=== PATIENT | female | born 1955 | race Two or more races ===

== ENCOUNTER 2025-08-11 13:01 | Outpatient (AMB) | payer OTHER, SELFPAY ==
--- OUTSIDE RECORDS SUMMARY | 2025-08-11 13:04 | XMS_ITS | Clinical Summary ---
Author Organization [facility] Address [address] [place] [address] Phone Care Team Providers Care Assistant Director Of Financial Aid Name Role Phone Brandon Arzola MD Primary Care Provider [phone] Allergies Active Allergy Reactions Criticality Noted Date Comments Amoxicillin Respiratory Issues Medium 06/23/2017 Aspirin GI intolerance Low 06/23/2017 Influenza Virus Vaccines Other High 01/26/2020 In [place] - after given vaccine, had generalized weakness for a month. Doctor told her never to get this again. (however was not told specifically Guillain-[place]ubu[place]) Medications hydrOXYzine HCL (ATARAX) 10 mg tablet Take 1 tablet (10 mg total) by mouth 3 (three) times a day. 30 tablet 1 5 Active SUMAtriptan (IMITREX) 50 mg tablet Take 1 tablet (50 mg total) by mouth 1 (one) time each day if needed for migraine (may repeat dose once after 2 hours, if needed) for up to 40 doses. May repeat dose once in 2 hours if no relief. Do not exceed 2 doses in 24 hours. 20 tablet 1 5 Active betamethasone, augmented, (DIPROLENE-AF) 0.05 % cream Apply topically 2 (two) times a day. Apply topically 2 (two) times a day 30 g 3 5 Active escitalopram (LEXAPRO) 20 mg tablet Take 1 tablet (20 mg total) by mouth 1 (one) time each day. 90 each 5 Active fluticasone propionate (FLONASE) 50 mcg/actuation nasal spray Administer 1 spray into each nostril 1 (one) time each day. Shake gently. Before first use, prime pump. After use, clean tip and replace cap. 16 g 5 Active lisinopriL (PRINIVIL,ZESTR IL) 10 mg tablet Take 1 tablet (10 mg total) by mouth 1 (one) time each day. 90 each 5 Active mirtazapine (REMERON) 7.5 mg tablet Take 1 tablet (7.5 mg total) by mouth at bedtime. at bedtime. 90 each 5 Active omeprazole (PriLOSEC) [address] capsule Take 1 capsule (20 mg total) by mouth 1 (one) time each day. 90 capsule 5 Active rosuvastatin (CRESTOR) 10 mg tablet Take 1 tablet (10 mg total) by mouth 1 (one) time each day. 90 each 5 Active donepeziL (ARICEPT) 5 mg tablet Take 1 tablet (5 mg total) by mouth at bedtime. Active oxyCODONE (ROXICODONE) 5 mg immediate release tablet Take 1 tablet (5 mg total) by mouth every 6 (six) hours if needed (take 1 tablet (5mg) for moderate pain (4-6) or take 2 tablets (10mg) for severe pain (7-10)). Max Daily Amount: 20 mg 28 tablet 5 Active propranoloL (INDERAL) 10 mg tablet Take 1 tablet (10 mg total) by mouth 2 (two) times a day. 180 each 5 10/15/20 25 Active albuterol 2.5 mg /3 mL (0.083 %) nebulizer solutionIndicat ions:Moderate persistent asthma, unspecified whether complicated Take 3 mL (2.5 mg total) by nebulization 4 (four) times a day if needed for wheezing or shortness of breath. 90 each 5 05/03/20 26 Active albuterol HFA (Ventolin HFA) 90 mcg/actuation inhalerIndicati ons:Moderate persistent asthma, unspecified whether complicated Inhale 2 puffs by mouth every 4 (four) hours if needed for wheezing or shortness of breath. 8 g 5 05/03/20 26 Active gabapentin (NEURONTIN) 300 mg capsuleIndicati ons:Malignant neoplasm of lung, unspecified laterality, unspecified part of lung (CMS/HCC V24, CMS/HCC V28) Take 1 capsule (300 mg total) by mouth 3 (three) times a day if needed (pain). 90 each 5 10/30/20 25 Active cholecalciferol (VITAMIN D-3) 50 mcg (2,000 unit) tabletIndicatio ns:Vitamin D deficiency Take 1 tablet (2,000 Units total) by mouth 1 (one) time each day. 90 tablet 5 05/16/20 26 Active magnesium oxide 400 mg magnesium capsuleIndicati ons:Hypomagnese kajal Take 1 capsule by mouth 1 (one) time each day. 30 capsule 3 5 Active blood sugar diagnostic (FreeStyle Lite Strips) test strip USE TO CHECK SUGARS ONCE DAILY 100 strip 5 5 Active FreeStyle Lancets 28 gauge lancets USE TO CHECK SUGARS ONCE DAILY 100 each 5 5 Active fenofibrate (TRICOR) 145 mg tablet Take 1 tablet (145 mg total) by mouth 1 (one) time each day. 30 each 5 5 01/16/20 26 Active Active Problems Problem Noted Date Diagnosed Date History of lung cancer 04/09/2025 Assessment & Plan (04/09/2025 3:50 PM EDT): Ms. Carly Berry is a 69 y.o. 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 After checking Mass[employer] and seeing no red flags I did prescribe her oxycodone 5 mg tablets to be used 1 tablet 3 times daily total supply #30. She was informed that we did discuss her at our weekly multidisciplinary tumor board meeting with the decision made that she would not require any visits with medical oncology and instead would continue with chest CT surveillance every 6 months for the first year. After 1 year of 6-month surveillance her chest CT surveillance intervals will be increased to yearly for a total of 10 years. Her next chest CT surveillance will be due in 6 months which will be September 2025 and have a visit at the thoracic surgical department thereafter to discuss results. Lung cancer ([facility] V24, [facility] V28) Pulmonary nodule 02/17/2025 Asthma 11/01/2024 HTN (hypertension) 11/01/2024 Hyperlipidemia LDL goal <130 11/01/2024 Migraine headache 11/01/2024 Seasonal allergies 11/01/2024 Type 2 diabetes mellitus wit h hyperglycemia, without long-term current use of insulin ([facility] V24, [facility] V28) 08/16/2024 Smoker 08/18/2019 Obstructive sleep apnea 01/26/2019 Overview (11/01/2024): SMS Home Polysomnogram: Date 01/23/2019; HEMALATHA 11, Unclassified apneas 3; Obstructive apneas 83; Central apneas 8; Mixed apneas 1; hypopneas 45; average oxygen saturation 94% (lowest 84% without saturations <88% for 5% or more of study) - Obstructive Sleep Apnea - mild; mostly obstructive apneas and hypopneas; without sleep related hypoventilation by 2018 home polysomnogram. Vitamin D deficiency 11/04/2018 Encounters Date Type Department Care Team Description 07/20/2025 3:45 PM EDT Office Visit Internal Medicine [address] [place] [address] Brandon Arzola MD Right-sided chest wall pain (Primary Dx); Hyperlipidemia LDL goal <130 06/27/2025 1:30 PM EDT Office Visit [facility] Hematology Oncology [address] [place] [address] Lizz Rodgers PA Leukocytosis, unspecified type (Primary Dx); History of lung cancer; TUCKER (obstructive sleep apnea); Class 1 obesity with serious comorbidity and body mass index (BMI) of 30.0 to 30.9 in adult, unspecified obesity type; Tobacco use disorder 05/19/2025 Telephone Internal Medicine - [facility] [address] [facility] [address] [place] [phone] Debra Dawkins MA 05/17/2025 11:00 AM EDT Ancillary Procedure Pulmonology - [facility] [address] [facility] [place] [phone] Pulmonary nodule from Last 3 Months Surgical History Surgery Date Site/Laterality Comments OOPHORECTOMY Left PROCEDURE: HISTORICAL OOPHORECTOMY COLONOSCOPY 07/20/2017 PROCEDURE: HISTORICAL COLONOSCOPY; COMMENT: tics; repeat in 10 yrs HYSTERECTOMY 2000 PROCEDURE: HISTORICAL HYSTERECTOMY TONSILLECTOMY LUNG LOBECTOMY 03/22/2025 Right RML Medical History Medical History Date Comments HTN (hypertension) DX:HTN (hyper tension) Hyperlipidemia LDL goal <130 DX: Hyperlipidemia LDL goal <130 Asthma DX:Asthma Migraine headache DX:Migraine he adache Seasonal allergies DX:Seasonal a llergies Smoker 08/18/2019 DX:Smoker Anxiety GERD (gastroesophageal reflux disease) Colon polyp Sleep apnea Arthritis Lung cancer ([facility] V24, [facility] V28) RML Family History Medical History Relation Name Comments No Known Problems Aunt 1 Alzheimer's disease Aunt 2 Hyperlipidemia Brother 1 Other: PTSD Brother 1 Other: PTSD Brother 2 No Known Problems Daughter Age 34 (06/23/2017) CABG Father Heart attack Father Stroke Father No Known Problems Maternal Grandfather Alzheimer's disease Maternal Grandmother Alzheimer's disease Mother 93 y/o Lung cancer Mother Pancreatic cancer Mother metastatic Stroke Mother Breast cancer Other No Known Problems Paternal Grandfather No Known Problems Paternal Grandmother Depression Sister Hyperlipidemia Sister Migraines Sister Asthma Son 1 Migraines Son 1 Age 25 ( 7) Migraines Son 2 Age 45 ( 7) Alzheimer's disease Uncle 1 twin of mom Alzheimer's disease Uncle 2 Alzheimer's disease Uncle 3 Colon cancer Neg Hx Ovarian cancer Neg Hx Relation Name Status Comments Aunt 1 Aunt 2 Brother 1 Alive Brother 2 Alive Daughter Alive Father (Age 85) Maternal Grandfather Maternal Grandmother Mother (Age 93) Other cousin Paternal Grandfather Paternal Grandmother Sister Alive Son 1 Alive Son 2 Alive Uncle 1 Uncle 2 Uncle 3 Social History Tobacco Use Types Packs/Day Years Used Date Smoking Tobacco: Former Cigarettes 0.5 47.3 S tarted: 11/23/1977 Smokeless Tobacco: Never Alcohol Use Standard Drinks/Week Comments No 0 (1 standard drink = 0.6 oz pur e alcohol) Housing Instability Answer Date Recorde d Are you worried that in the next 2 months you may not have stable housing? No 01/18/2025 Food Access & Nutrition Answer Date Rec orded Do you have access to a vari ety of food including fruits and vegetables? Yes 01/18/2025 Access to Healthcare Answer Date Record ed Within the last 3 months, ho w many times did you visit the emergency department for your medical care? 0 01/18/2025 Health Literacy Answer Date Recorded How often do you need to hav e someone help you when you read instructions, pamphlets, or other written material from your doctor or pharmacy? Sometimes 01/18/2025 Caregiver: How often do you need to have someone help you when you read instructions, pamphlets, or other written material from your doctor or pharmacy? Not on file 01/18/2025 Financial Risk Answer Date Recorded How hard is it for you to pa y for the very basics like food, housing, medical care, and air conditioning / heating? Not very hard 01/18/2025 Transportation Answer Date Recorded Has the lack of transportati on kept you from meetings, work, or from getting things needed for daily living? No Has the lack of transportati on kept you from medical appointments or from getting medications? No 01/18/2025 Social Isolation Answer Date Recorded How often do you feel lonely or isolated from th ose around you? Rarely 01/18/2025 Food Risk Answer Date Recorded Within the past 12 months we worried whether our food would run out before we got money to buy more. Never true 01/18/2025 Within the past 12 months th e food we bought just didn't last and we didn't have money to get more. Never true 01/18/2025 Dependent Care Answer Date Recorded Do you need help finding or paying for care for your loved ones. For example, children's librarian or elderly care for an older adult? No 01/18/2025 Education Answer Date Recorded Do you think completing more education or training, like finishing a GED, going to college, or learning a trade, would be helpful for you? N/A 01/18/2025 Employment and Income Answer Date Recor ded During the last four weeks, have you been actively looking for work? No 01/18/2025 Living Situation Answer Date Recorded What is your living situation? 0 01/18/2025 Interpersonal Safety Answer Date Record ed Physical Abuse 03/22/2025 Verbal Abuse 03/22/2025 Comments No Sex and Gender Information Value Date Recorded Sex Assigned at Female 01/24/2025 11:58 AM EST Legal Sex Female 10:45 AM EST Gender Identity Female 01/24/2025 11:58 AM EST Sexual Orientation Straight 02/27/2025 11 :04 AM EDT Obstetrics History Last Filed Vital Signs Vital Sign Reading Time Taken Comments Blood Pressure 120/70 07/20/2025 3:28 PM EDT Pulse 61 07/20/2025 3:28 PM EDT Temperature 35.7 C (96.2 F) 07/20/2025 3:28 PM EDT Respiratory Rate 14 04/05/2025 3:01 PM EDT Oxygen Saturation 98% 07/20/2025 3:28 PM EDT Inhaled Oxygen Concentration - - Weight 81.6 kg (180 lb) 07/20/2025 3:28 PM EDT Height 162.6 cm (5' 4 ) 07/20/2025 3:28 PM EDT Body Mass Index 30.9 07/20/2025 3:28 PM EDT Plan of Treatment Upcoming Encounters Date Type Department Care Team (Late st Contact Info) Description 08/18/2025 2:10 PM EDT Appointment Radiology Department - [address] [phone] 09/28/2025 4:00 PM EST Office Visit Endocrinology - [address] [phone] Jaimie Rodriguez PA [address] [place] [address] 01/18/2026 3:30 PM EST Office Visit Internal Medicine - [facility] [address] [phone] Brandon Arzola MD [address] [facility] [address] [place] [address] Health Maintenance Due Date Last Done Comments Diabetes: Annual Foot Exam 1964 Diabetes: Annual Retina Eye Exam 1964 RSV Immunization Adult Patients (1 - Risk 60-74 years 1-dose series) 2014 Colorectal Cancer Screening: Colonoscopy 11/01/2022 Hepatitis C Screening 11/01/2022 Medicare Annual Wellness Visit 11/01/2022 Zoster Vaccines (2 of 2) 12/19/2022 10/24/2022, 09/23 COVID-19 Vaccine ( season) 2025 01/15/2024, 01/19/2021, 12/29/2020 Influenza Vaccine (#1) 2025 01/15/2024 Diabetes: Blood Sugar Control Test (HGBA1C) 09/01/2025 03/02/2025, 10/24/2024, 06/22/2024 Diabetes: Annual Urine Albumin-Creatinine Ratio (uACR) 10/24/2025 10/24/2024 Social Influencers of Health Screening 01/18/2026 01/18/2025 Falls Risk Assessment 03/23/2026 03/23/2025 Diabetes: Annual GFR (Glomerular Filtration Rate) 05/12/2026 05/12/2025, 03/23/2025, 03/22/2025, Additional history exists Hypertension/CHF/CAD Annual BMP Blood Test 05/12/2026 05/12/2025, 03/23/2025, 03/22/2025, Additional history exists Breast Cancer Screening 08/08/2026 08/08/20 24, 08/08/2024, 05/08/2023, Additional history exists DTaP,Tdap,and Td Vaccines (2 - Td or Tdap) 10/05/2027 10/05/2017 Cholesterol Screening (Lipid Panel) 05/12/2030 05/12/2025, 05/12/2025, 03/02/2025, Additional history exists Osteoporosis Screening (Bone Density Screening) 04/24/2031 04/24/2021 Pneumococcal Vaccine: 50+ Years Completed 03/05/2021, 01/26/2020, 12/20/2018 Depression Screening Completed 01/18/2025 Lung Cancer Screening (Low Dose CT) Discontinued 01/25/2025 HIB Vaccines Aged Out No longer eligi ble based on patient's age to complete this topic HPV Vaccines Aged Out No longer eligi ble based on patient's age to complete this topic Hepatitis A Vaccines Aged Out No long er eligible based on patient's age to complete this topic Hepatitis B Vaccines Aged Out No long er eligible based on patient's age to complete this topic IPV Vaccines Aged Out No longer eligi ble based on patient's age to complete this topic MMR Vaccines Aged Out No longer eligi ble based on patient's age to complete this topic Meningococcal ACWY Vaccine Aged Out N o longer eligible based on patient's age to complete this topic Meningococcal B Vaccine Aged Out No l onger eligible based on patient's age to complete this topic RSV Immunization Patients Under 20 months Aged Out No longer eligible based on patient's age to complete this topic Varicella Vaccines Aged Out No longer eligible based on patient's age to complete this topic Medical Devices Implanted Type Area Telegraph Printer Mechanic Device Identifier Shelf Expiration Date Model / Serial / Lot Sealant Fibrin Vistaseal 10ml - [id number] - [id number] Implanted:Qty : 1 on 03/22/2025 by Kristian Dolan MD at [facility] Hemostasis Right: Chest [employer] [id number] 08/29/2026 [id number] / [id number] / [id number] Sealant Progel Air Pleural 4ml - Sna - [id number] Implanted:Qty : 1 on 03/22/2025 by Kristian Dolan MD at [facility] [employer] Right: Chest CR [employer]ARD [employer] [id number] 08/23/2026 [id number] / [id number] / [id number] Procedures Procedure Name Priority Date/Time Associated Diagnosis Comments PULMONARY FUNCTION TESTING Routine 05/17/2025 11:50 AM EDT Pulmonary nodule LDL CHOLESTEROL, DIRECT Routine 05/12/2025 1:14 PM EDT Primary hypertension Type 2 diabetes mellitus without complication, without long-term current use of insulin ([facility] V24, [facility] V28) Hypercholesterolemia CBC WITH AUTO DIFFERENTIAL Routine 05/12/2025 1:14 PM EDT Primary hypertension Type 2 diabetes mellitus without complication, without long-term current use of insulin ([facility] V24, [facility] V28) Hypercholesterolemia CBC AND DIFFERENTIAL Routine 05/12/2025 1:14 PM EDT Primary hypertension Type 2 diabetes mellitus without complication, without long-term current use of insulin ([facility] V24, [facility] V28) Hypercholesterolemia COMPREHENSIVE METABOLIC PANEL Routine 05/12/2025 1:14 PM EDT Primary hypertension Type 2 diabetes mellitus without complication, without long-term current use of insulin ([facility] V24, [facility] V28) Hypercholesterolemia LIPID PANEL WITH REFLEX TO DIRECT LDL Routine 05/12/2025 1:14 PM EDT Primary hypertension Type 2 diabetes mellitus without complication, without long-term current use of insulin ([facility] V24, [facility] V28) Hypercholesterolemia THYROID STIMULATING HORMONE Routine 05/12/2025 1:14 PM EDT Primary hypertension Type 2 diabetes mellitus without complication, without long-term current use of insulin ([facility] V24, [facility] V28) Hypercholesterolemia MAGNESIUM Routine 05/12/2025 1:14 PM EDT Routine adult health maintenance VITAMIN B12 Routine 05/12/2025 1:14 PM EDT Vitamin B12 deficiency VITAMIN D 25 HYDROXY Routine 05/12/2025 1:14 PM EDT Vitamin D deficiency HEMOGLOBIN A1C Routine 03/02/2025 11:11 AM EDT Type 2 diabetes mellitus with hyperglycemia, without long-term current use of insulin ([facility] V24, [facility] V28) CT LUNG SCREENING Routine 01/25/2025 2:4 5 PM EST Cigarette smoker Encounter for screening for lung cancer MICROALBUMIN CREATININE URINE RATIO Routine 10/24/2024 10:04 AM EST Type II or unspecified type diabetes mellitus with renal manifestations, uncontrolled(250.42) ([facility] V24, [facility] V28) SCREENING MAMMOGRAPHY BI 2-VIEW BREAST INC CAD Routine 08/08/2024 1:34 PM EDT Encounter for other screening for malignant neoplasm of breast DXA BONE DENSITY STUDY 1+ SITS AXIAL SKEL Routine 04/24/2021 11:06 AM EDT Encounter for screening for osteoporosis from Last 3 Months or Most Recently Relevant to Health Maintenance Results * Pulmonary function testing: Carbon Monoxide Diffusing Capacity, Nitrogen Wash Out, Spirometry with Bronchodilator (05/17/2025 11:50 AM EDT) Impressions Julia Ying MD - 05/17/2025 11:50 AM EDT DATE OF SERVICE: 05/17/25 SPIROMETRY: FEV1 is 99 % predicted and an FVC is 90 % predicted. The FEV1/FVC ratio is 109% of normal, no response to bronchodilators noted. LUNG VOLUMES: Total lung capacity (TLC): 96% predicted. Residual volume (RV): 100% predicted RV/TLC ratio is 102% of normal DIFFUSION CAPACITY: DLCO 76% predicted. DlCO/VA 76% of predicted COMPARISONS: INTERPRETATION: This pulmonary function test shows normal spirometry with a slight diffusion impairment. Julia Ying MD us Kristian Dolan MD PFT ORDERABLES Final Result * (ABNORMAL) Lipid panel with reflex to direct LDL (05/12/2025 1:14 PM EDT) Cholesterol 394(H) 0 - 200 mg/dL LAB CHEMISTRY METHOD 05/12/2025 4:42 PM EDT [facility] Triglycerides 880(H) 0 - 150 mg/dL LAB CHEMISTRY METHOD 05/12/2025 4:42 PM EDT [facility] HDL 37(L) >=40 mg/dL LAB CHEMISTRY METHOD 05/12/2025 4:42 PM EDT [facility] LDL Calculated LAB CHEMISTRY METHOD 05/12/2025 4:42 PM EDT [facility] Comment: Unable to calculate when triglycerides >400 mg/dL. Triglyceride value is >= 500. Calculated LDL is not meaningful. Direct LDL has been added. VLDL Cholesterol Long LAB CHEMISTRY METHOD 05/12/2025 4:42 PM EDT [facility] Comment:Unable to calculate when triglycerides >400 mg/dL. Non HDL Chol. (LDL+VLDL) LAB CHEMISTRY METHOD 05/12/2025 4:42 PM EDT [facility] Comment:Unable to calculate when triglycerides >400 mg/dL. Chol/HDL Ratio 10.6(H) 0.0 - 4.4 LAB CHEMISTRY METHOD 05/12/2025 4:42 PM EDT [facility] Blood Venous blood specimen / Unknown Venipuncture / Unknown 05/12/2025 1:14 PM EDT 05/12/2025 1:14 PM EDT us Brandon Arzola MD LAB BLOOD ORDERABLES Final Resul t [facility] [address] [place] [address], [place] [phone] * (ABNORMAL) CBC auto differential (05/12/2025 1:14 PM EDT) WBC 10.2 4.8 - 10.8 K/mcL LAB HEMETOLOGY METHOD 05/12/2025 2:48 PM EDT [facility] RBC 4.60 3.80 - 4.80 M/mcL LAB HEMETOLOGY METHOD 05/12/2025 2:48 PM EDT [facility] Hemoglobin 13.0 11.5 - 16.0 g/dL LAB HEMETOLOGY METHOD 05/12/2025 2:48 PM EDT [facility] Hematocrit 40.9 35.0 - 47.0 % LAB HEMETOLOGY METHOD 05/12/2025 2:48 PM EDT [facility] MCV 89.7 79.0 - 98.0 FL LAB HEMETOLOGY METHOD 05/12/2025 2:48 PM EDT [facility] MCH 28.5 27.0 - 32.0 pcg LAB HEMETOLOGY METHOD 05/12/2025 2:48 PM EDT [facility] MCHC 31.8(L) 32.0 - 37.0 g/dL LAB HEMETOLOGY METHOD 05/12/2025 2:48 PM EDT [facility] RDW 13.7 11.0 - 15.0 % LAB HEMETOLOGY METHOD 05/12[facility]2025 2:[facility] Platelets 327 130 - 400 K/mcL LAB HEMETOLOGY METHOD 05/12/2025 2:48 PM [facility] MPV 10.5 7.0 - 11.0 FL LAB HEMETOLOGY METHOD 05/12/2025 2:48 PM [facility] NRBC 0.0 <1.0 % LAB HEMETOLOGY METHOD 05/12/2025 2:48 PM [facility] NRBC Absolute 0.00 <0.10 K/mcL LAB HEMETOLOGY METHOD 05/12/2025 2:48 PM [facility] Neutrophils Relative 43.8 % LAB HEMETOLOGY METHOD 05/12/2025 2:48 PM [facility] Lymphocytes Relative 40.5 % LAB HEMETOLOGY METHOD 05/12/2025 2:48 PM EDT [facility] Monocytes Relative 10.3 % LAB HEMETOLOGY METHOD 05/12/2025 2:48 PM [facility] Eosinophils Relative 3.5 % LAB HEMETOLOGY METHOD 05/12/2025 2:48 PM EDT [facility] Basophils Relative 1.2 % LAB HEMETOLOGY METHOD 05/12/2025 2:48 PM EDT [facility] Immature Granulocytes Relative 0.7 % LAB HEMETOLOGY METHOD 05/12/2025 2:48 PM EDT [facility] Neutrophils Absolute 4.47 1.50 - 7.00 K/mcL LAB HEMETOLOGY METHOD 05/12/2025 2:48 PM EDT [facility] Lymphocytes Absolute 4.14 1.00 - 5.00 K/mcL LAB HEMETOLOGY METHOD 05/12/2025 2:48 PM EDT [facility] Monocytes Absolute 1.05(H) 0.20 - 1.00 K/mcL LAB HEMETOLOGY METHOD 05/12/2025 2:48 PM EDT [facility] Eosinophils Absolute 0.36 0.00 - 0.50 K/mcL LAB HEMETOLOGY METHOD 05/12/2025 2:48 PM EDT [facility] Basophils Absolute 0.12 0.00 - 0.20 K/mcL LAB HEMETOLOGY METHOD 05/12/2025 2:48 PM EDT [facility] Immature Granulocytes Absolute 0.07(H) 0.00 - 0.03 K/mcL LAB HEMETOLOGY METHOD 05/12/2025 2:48 PM EDT [facility] Blood Venous blood specimen / Unknown Venipuncture / Unknown 05/12/2025 1:14 PM EDT 05/12/2025 1:14 PM EDT us Brandon Arzola MD LAB BLOOD ORDERABLES Final Resul t [facility] [address] [place] [address], * (ABNORMAL) Vitamin D 25 hydroxy (05/12/2025 1:14 PM EDT) Vit D, 25-Hydroxy 12.5(L) 30.0 - 80.0 ng/mL LAB CHEMISTRY METHOD 05/12/2025 4:48 PM EDT [facility] Blood Venous blood specimen / Unknown Venipuncture / Unknown 05/12/2025 1:14 PM EDT 05/12/2025 1:14 PM EDT Rolly Hilliard NP LAB BLOOD ORDERABLES Final Resul t Performing Organization Address [facility] de Phone Number [facility] [address] [place] [address], [place] [phone] * Thyroid stimulating hormone (05/12/2025 1:14 PM EDT) TSH 1.88 0.40 - 4.00 mcIU/mL LAB CHEMISTRY METHOD 05/12/2025 4:49 PM EDT [facility] Blood Venous blood specimen / Unknown Venipuncture / Unknown 05/12/2025 1:14 PM EDT 05/12/2025 1:14 PM EDT Brandon Arzola MD LAB BLOOD ORDERABLES Final Resul t Performing Organization Address [facility] de Phone Number [facility] [address] [place] [address], [place] [phone] * (ABNORMAL) Magnesium (05/12/2025 1:14 PM EDT) Magnesium 1.8(L) 1.9 - 2.6 mg/dL LAB CHEMISTRY METHOD 05/12/2025 4:18 PM EDT [facility] Blood Venous blood specimen / Unknown Venipuncture / Unknown 05/12/2025 1:14 PM EDT 05/12/2025 1:14 PM EDT Rolly Hilliard NP LAB BLOOD ORDERABLES Final Resul t Performing Organization Address City/[facility] de Phone Number [facility] [address] [place] [address], [place] [phone] * (ABNORMAL) LDL cholesterol, direct (05/12/2025 1:14 PM EDT) [facility] LDL Direct 154(H) <=100 mg/dL LAB CHEMISTRY METHOD 05/12/2025 4:56 PM EDT [facility] Blood Venous blood specimen / Unknown Venipuncture / Unknown 05/12/2025 1:14 PM EDT 05/12/2025 1:14 PM EDT Brandon Arzola MD LAB BLOOD ORDERABLES Final Resul t Performing Organization Address City/[facility]/ZIP Co de Phone Number [facility] [address] [place] [address], [place] [phone] * (ABNORMAL) Vitamin B12 (05/12/2025 1:14 PM EDT) [facility] Vitamin B-12 922(H) 250 - 900 pcg/mL LAB CHEMISTRY METHOD 05/12/2025 5:30 PM EDT [facility] Blood Venous blood specimen / Unknown Venipuncture / Unknown 05/12/2025 1:14 PM EDT 05/12/2025 1:14 PM EDT us Rolly Hilliard NP LAB BLOOD ORDERABLES Final Resul t [facility] [address] [place] [address], [place] [phone] * (ABNORMAL) Comprehensive metabolic panel (05/12/2025 1:14 PM EDT) [facility] Sodium 140 133 - 145 mmol/L LAB CHEMISTRY METHOD 05/12/2025 4:42 PM EDT [facility] Potassium 4.3 3.5 - 5.5 mmol/L LAB CHEMISTRY METHOD 05/12/2025 4:42 PM [facility] Chloride 102 96 - 110 mmol/L LAB CHEMISTRY METHOD 05/12/2025 4:42 PM [facility] CO2 30 21 - 32 mmol/L LAB CHEMISTRY METHOD 05/12/2025 4:42 PM [facility] Anion Gap 8 3 - 11 LAB CHEMISTRY METHOD 05/12/2025 4:42 PM [facility] Glucose 154(H) 70 - 100 mg/dL LAB CHEMISTRY METHOD 05/12/2025 4:42 PM [facility] BUN 11 5 - 25 mg/dL LAB CHEMISTRY METHOD 05/12/2025 4:42 PM [facility] Creatinine 0.84 0.50 - 1.10 mg/dL LAB CHEMISTRY METHOD 05/12/2025 4:42 PM [facility] eGFR 75 >=60 mL/min/1. 73m2 LAB CHEMISTRY METHOD 05/12/2025 4:42 PM [facility] Comment:Calculation based on the Chronic Kidney Disease Epidemiology Collaboration (CKD-EPI) equation refit without adjustment for race. BUN/Creatinine Ratio 13.1 LAB CHEMISTRY METHOD 05/12/2025 4:42 PM [facility] Calcium 9.3 8.5 - 10.5 mg/dL LAB CHEMISTRY METHOD 05/12/2025 4:42 PM [facility] AST (SGOT) 15 10 - 42 unit/L LAB CHEMISTRY METHOD 05/12/2025 4:42 PM [facility] ALT (SGPT) 21 10 - 60 unit/L LAB CHEMISTRY METHOD 05/12/2025 4:42 PM [facility] Alkaline Phosphatase 119 42 - 121 unit/L LAB CHEMISTRY METHOD 05/12/2025 4:42 PM [facility] Total Protein 7.1 6.0 - 8.0 g/dL LAB CHEMISTRY METHOD 05/12/2025 4:42 PM EDT [facility] Albumin 3.4 3.2 - 5.0 g/dL LAB CHEMISTRY METHOD 05/12/2025 4:42 PM EDT [facility] Total Bilirubin 0.3 0.0 - 1.4 mg/dL LAB CHEMISTRY METHOD 05/12/2025 4:42 PM EDT [facility] Blood Venous blood specimen / Unknown Venipuncture / Unknown 05/12/2025 1:14 PM EDT 05/12/2025 1:14 PM EDT Brandon Arzola MD LAB BLOOD ORDERABLES Final Resul t [facility] [address] [place] [address], [place] [phone] * (ABNORMAL) Hemoglobin A1c (03/02/2025 11:11 AM EDT) Hemoglobin A1C 7.1(H) <6.5 % LAB CHEMISTRY METHOD 03/02/2025 1:46 PM EDT [facility] Mean Bld Glu Estim. 157 mg/dL LAB CHEMISTRY METHOD 03/02/2025 1:46 PM EDT [facility] Blood Venous blood specimen / Unknown Venipuncture / Unknown 03/02/2025 11:11 AM EDT 03/02/2025 11:11 AM EDT Jaimie SAAB LAB BLOOD ORDERABLES Final Resul t [facility] [address] [place] [address], [place] [phone] * CT Lung Screening (01/25/2025 2:45 PM EST) Anatomical Region Laterality Modality Chest Computed Tomogra phy 01/27/2025 5:50 PM EST Impressions 01/27/2025 6:02 PM EST There is a low density circumscribed 1.2 cm nodule in the middle lobe. Recommend thorough search for any old x-rays or CT. The finding is nonspecific but possibility should include hamartoma. Recommend short interval follow-up CT in 3 months. There is motion artifact. LUNG RADS: Lung-RADS 4A: SUSPICIOUS S Modifier (Significant or Potentially Significant Findings): None present No suspicious nonpulmonary findings. RECOMMENDATIONS: [address]; PET/CT may be considered if there is a greater than or equal to 8 mm solid nodule or solid component -------- FINAL REPORT -------- Dictated By: Yousif Alonso Dictated Date: 01/27/2025 17:50 ET Assigned Physician: Yousif Alonso Reviewed and Electronically Signed By: Yousif Alonso Signed Date: 01/27/2025 18:02 ET Workstation ID: [id number] Transcribed By: Self Edit Transcribed Date: 01/27/2025 17:50 ET Narrative 01/27/2025 6:02 PM EST EXAMINATION: CT CHEST WITHOUT CONTRAST LUNG CANCER SCREENING, LOW DOSE CLINICAL INFORMATION: Lung cancer screening. Current smoker COMPARISON: None TECHNIQUE: Multidetector CT. Examination of the chest. Examination of the chest without IV contrast. Reformatting in the coronal and sagittal planes. Device: [employer] VCT DLP: 184 mGy-cm CTDI: 4.83 Dose optimization was performed including the use of low-dose iterative reconstruction technique with automatic exposure control based on patient size. Type of contrast: None Volume of IV contrast: None Volume of contrast discarded: 0 mL FINDINGS: There is motion artifact which limits detail. LUNG: No abnormality of the trachea or mainstem bronchi. LUNG NODULES: There is a circumscribed relatively low density oval solid nodule measuring 1.2 cm in the middle lobe (3/159). There are adjacent vessels. There is some irregular volume loss in the medial segment middle lobe distal to the mass. Difficult to determine if this is related to an airway. The mean Hounsfield units are 4. No definite macroscopic fat. No calcification. OTHER PULMONARY: There are reticular opacities adjacent to the right side of the trachea in the medial right upper lobe which is likely infectious or inflammatory. There is no honeycomb formation. There are a few linear areas of atelectasis or fibrosis. MEDIASTINUM: There are no enlarged mediastinal or hilar lymph nodes. No suspicious abnormalities of the esophagus CARDIAC: The heart is not enlarged. No pericardial fluid or thickening No coronary calcifications demonstrated. VASCULAR: There is no thoracic aortic aneurysm. The main pulmonary artery is normal caliber PLEURA: There is no pleural fluid or pneumothorax AXILLA/CHEST WALL: There are no enlarged axillary lymph nodes. No chest wall mass demonstrated VISUALIZED UPPER ABDOMEN: Motion artifact. Portions are excluded. No suspicious abnormality demonstrated. MUSCULOSKELETAL: No suspicious focal bony lesion demonstrated. Kristian Dolan MD IMG CT PROCEDURES Final Result * (ABNORMAL) Microalbumin creatinine urine ratio (10/24/2024 10:04 AM EST) Creatinine, Urine 328.0 mg/dL LAB CHEMISTRY METHOD 10/24/2024 4:19 PM EST [facility] Microalb, Ur 29.7(H) 0.0 - 29.0 mg/L LAB CHEMISTRY METHOD 10/24/2024 4:19 PM EST [facility] Microalb/Crea t Ratio 9 <30 mg/g creat LAB CHEMISTRY METHOD 10/24/2024 4:19 PM EST [facility] Urine Urine specimen obtained by clean catch procedure / Unknown Non-blood Collection / Unknown 10/24/2024 10:04 AM EST 10/24/2024 10:04 AM EST Jaimie SAAB LAB URINE ORDERABLES Final Resul t [facility] [address] [place] [address], * SCREENING MAMMOGRAPHY BI 2-VIEW BREAST INC CAD (08/08/2024 1:34 PM EDT) Anatomical Region Laterality Modality Radiographic Stephanie ging 05/08/2023 2:47 PM EDT Narrative 08/09/2024 9:40 AM EDT This is a summary report. The complete report is available in the patient's medical record. If you cannot access the medical record, please contact the sending organization for a detailed fax or copy. Full field digital screening tomosynthesis mammography, reviewed with CAD and compared to previous mammograms dating back to 10/29/2019 and most recent of 05/08/2023. The breast tissue is heterogeneously dense, limiting sensitivity. No suspicious mass, architectural distortion or suspicious calcifications are identified. IMPRESSION: : Dense breast tissue, limiting the sensitivity of mammography. No mammographic evidence of malignancy. BIRADS 1-Negative; N. Breast density: The breasts are heterogeneously dense, which may obscure small masses. 5 year breast cancer risk assessment 1.0 % Lifetime breast cancer risk assessment 2.8 % Breast cancer risk category Low (<15%) Location: [facility], [address] [place] [address], [address], [phone] Procedure Note Harini Iniguez MD - 09/07/2024 This is a summary report. The complete report is available in thepatient's medical record. If you cannot access the medical record, pleasecontact the sending organization for a detailed fax or copy. Full field digital screening tomosynthesis mammography, reviewed with CADand compared to previous mammograms dating back to 10/29/2019 and mostrecent of 05/08/2023. The breast tissue is heterogeneously dense, limitingsensitivity. No suspicious mass, architectural distortion or suspiciouscalcifications are identified. IMPRESSION: : Dense breast tissue, limiting the sensitivity of mammography. Nomammographic evidence of malignancy. BIRADS 1-Negative; N. Breast density: The breasts are heterogeneously dense, which may obscuresmall masses. 5 year breast cancer risk assessment 1.0 % Lifetime breast cancer risk assessment 2.8 % Breast cancer risk category Low (<15%) Location: [facility], [address] [place] [address], [address], [phone] Brandon Arzola MD IMG XR PROCEDURES Final Result * DXA BONE DENSITY STUDY 1+ SITS AXIAL SKEL (04/24/2021 11:06 AM EDT) Anatomical Region Laterality Modality Bone Densitometr y 12/03/2020 11:5 6 AM EST Narrative 04/24/2021 2:49 PM EDT BONE DENSITY Lumbar Spine T-score is -2.2 (SD relative to 20-29 y/o adult) Z-score is -0.3 (SD relative to age matched peers) This is consistent with osteopenia by criteria defined by the WHO. Left Hip T-score is -1.6 Z-score is +0.1 This is consistent with osteopenia by criteria defined by the WHO. Impression: Based on the World Health Organization criteria, Aracelis Berry should be classified as having osteopenia. This patient has a 9.3% risk of major osteoporotic fracture and a 1.8% risk of hip fracture over the next 10 years. (World Health Organization Fracture Risk Assessment) [facility] Department of Internal Medicine recommends using National Osteoporosis Foundation (NOF) guidelines in treatment decisions related to osteoporosis. NOF guidelines suggest considering treatment for postmenopausal women and men aged 50 or older presenting with the following: History of hip or vertebral fracture. T-score less than or equal to -2.5 (DXA) at the femoral neck, total hip, or spine, after appropriate evaluation to exclude secondary causes. Low bone mass (T-score between -1.0 and -2.5 at the femoral neck or spine) AND a 10-year probability of a hip fracture greater than or equal to 3% OR a 10-year probability of a major osteoporosis-related fracture greater than or equal to 20% based on the [place]-adapted WHO algorithm Please note that all treatment decisions require clinical judgment and consideration of individual patient factors, including patient preferences, co-morbidities, previous drug use, risk factors not captured in the FRAX model (e.g., frailty, falls, vitamin D deficiency, increased bone turnover, interval significant decline in bone density) and possible under- or over-estimation of fracture risk by FRAX. Procedure Note Lizz Godinez MD - 11/11/2022 BONE DENSITY Lumbar Spine T-score is -2.2 (SD relative to 20-29 y/o adult) Z-score is -0.3 (SD relative to age matched peers) This is consistent with osteopenia by criteria defined by the WHO. Left Hip T-score is -1.6 Z-score is +0.1 This is consistent with osteopenia by criteria defined by the WHO. Impression: Based on the World Health Organization criteria, Aracelis Berry shouldbe classified as having osteopenia. This patient has a 9.3% risk of majorosteoporotic fracture and a 1.8% risk of hip fracture over the next 10years. (World Health Organization Fracture Risk Assessment) [facility] Department of Internal Medicine recommendsusing National Osteoporosis Foundation (NOF) guidelines in treatmentdecisions related to osteoporosis. NOF guidelines suggest consideringtreatment for postmenopausal women and men aged 50 or older presentingwith the following: History of hip or vertebral fracture. T-score less than or equal to -2.5 (DXA) at the femoral neck, total hip,or spine, after appropriate evaluation to exclude secondary causes. Low bone mass (T-score between -1.0 and -2.5 at the femoral neck or spine)AND a 10-year probability of a hip fracture greater than or equal to 3% ORa 10-year probability of a major osteoporosis-related fracture greaterthan or equal to 20% based on the [place]-adapted WHO algorithm Please note that all treatment decisions require clinical judgment andconsideration of individual patient factors, including patientpreferences, co-morbidities, previous drug use, risk factors not capturedin the FRAX model (e.g., frailty, falls, vitamin D deficiency, increasedbone turnover, interval significant decline in bone density) and possibleunder- or over-estimation of fracture risk by FRAX. Opal Avila MD [facility] DXA PROCEDURES Final Res ult from Last 3 Months or Most Recently Relevant to Health Maintenance Insurance Member Subscriber Plan / Payer (Ef fective 2023-Present) Name:Carly BerryAracelis Relation to Subscriber:Self Name:True Prescottmen Payer ID:[id number] Group ID:[id number] Type:Not on file Address: [address] [place] [id number] Advance Directives * Full Code - Default (Latest Code Status on File) Date Activated Date Inactivated Comments 03/22/2025 11:38 AM 03/23/2025 3:17 PM This is orde r is used when code status has not been discussed with the patient, or code status is otherwise unknown/unconfirmed To update the patient's code status, place a code status order. Do not modify or discontinue any currently active code status orders. * Full Code - Default Date Activated Date Inactivated Comments 03/22/2025 5:52 AM 03/22/2025 11:38 AM This is ord er is used when code status has not been discussed with the patient, or code status is otherwise unknown/unconfirmed To update the patient's code status, place a code status order. Do not modify or discontinue any currently active code status orders. Care Teams Assistant Director Of Financial Aid Relationship Specialty Start Date End Date Brandon Arzola MD [address] [place] [id number] PCP - General Internal Medicine 09/05/21
--- OUTSIDE RECORDS SUMMARY | 2025-08-11 13:04 | XMS_ITS | Clinical Summary ---
Author Organization [facility] Address [address] [place] [address] Care Team Providers Care Mail Caller Name Role Phone Brandon Arzola MD Primary Care Provider Unavailab le Allergies Active Allergy Reactions Criticality Noted Date Comments Amoxicillin 08/01/2024 Aspirin 08/01/2024 Influenza Vaccines 08/01/2024 In [place]- after given vaccine, had generalized weakness for a month. Doctor told her never to get this again. ( however was not told specifically Guillain-Loman) Medications Medication Sig Dispensed Refills Start Date End Date Status metFORMIN (GLUCOPHAGE-XR) ER 24 hr tablet 500 mg Take 1 tablet (500 mg total) by mouth every morning with breakfast. 0 Active omeprazole (PriLOSEC) 20 MG capsule Take 1 capsule (20 mg total) by mouth daily. 0 Active hydrOXYzine (ATARAX) 10 MG tablet Take 1 tablet (10 mg total) by mouth 3 (three) times a day as needed for itching. 0 Active SUMAtriptan (IMITREX) 50 MG tablet Take 1 tablet (50 mg total) by mouth every 2 (two) hours as needed for migraine. 0 Active escitalopram (LEXAPRO) 20 MG tablet Take 1 tablet (20 mg total) by mouth daily. 0 Active rosuvastatin (CRESTOR) tablet 10 mg Take 1 tablet (10 mg total) by mouth daily. 0 Active lisinopril (PRINIVIL,ZESTRIL) tablet 10 mg Take 1 tablet (10 mg total) by mouth daily. 0 Active mirtazapine (REMERON) 7.5 MG tablet Take 1 tablet (7.5 mg total) by mouth every night at bedtime. 0 Active fluticasone (FLONASE) 50 MCG/ACT nasal spray spray/apply 1 spray in each nostril daily as needed for rhinitis or allergies. 0 Active propranolol (INDERAL) 10 MG tablet Take 1 tablet (10 mg total) by mouth 2 (two) times a day. 0 Active betamethasone, augmented, (Diprolene AF) 0.05 % cream Apply topically 2 (two) times a day. 0 Active Family History Medical History Relation Name Comments Lung cancer Mother Relation Name Status Comments Mother Social History Tobacco Use Types Packs/Day Years Used Date Smoking Tobacco: Every Day Cigarettes 0.5 Tobacco Cessation:Ready to Q uit: Not Asked; Counseling Given: Not Answered Alcohol Use Standard Drinks/Week Comments Yes 0 (1 standard drink = 0.6 oz pur e alcohol) Rare Sex and Gender Information Value Date Recorded Sex Assigned at Female 07/07/2024 3:52 PM EDT Gender Identity Not on file Sexual Orientation Not on file Job Start Date Occupation Industry Not on file Not on file Not on file Last Filed Vital Signs Vital Sign Reading Time Taken Comments Blood Pressure 136/68 08/02/2024 11:04 AM EDT Pulse 65 08/02/2024 11:04 AM EDT Temperature 36.6 C (97.8 F) 08/02/2024 11:04 AM EDT Respiratory Rate - - Oxygen Saturation 98% 08/02/2024 11:04 AM EDT Inhaled Oxygen Concentration - - Weight 80.3 kg (177 lb) 08/02/2024 11:04 AM EDT Height 160 cm (5' 3 ) 08/02/2024 11:04 AM EDT Body Mass Index 31.35 08/02/2024 11:04 AM EDT Plan of Treatment Health Maintenance Due Date Last Done Comments Hepatitis C Screening 1954 Depression Screening 1966 Preventative Health Evaluation 1972 Colon Cancer Screening (Colonoscopy) 1999 Breast Cancer Screening (Mammogram) 2004 Shingrix-Zoster Vaccine (1 o f 2) 2004 Fall Risk Assessment 2019 Osteoporosis Screening (DEXA Scan) 2019 COVID-19 Vaccine (3 - 5-2 6 season) 2025 01/19/2021, 12/29/2020 Influenza Vaccine (#1) 2025 DTap / Tdap / Td (2 - Td or Tdap) 10/05/2027 10/05/2017 RSV Adult > 60+ Yrs or (1 - 1-dose 75+ series) 2029 Pneumococcal Vaccine Completed 03/05/2021, 01/26/2020, 12/20/2018 Hepatitis B Vaccines Aged Out No long er eligible based on patient's age to complete this topic RSV Ped < 20 months Aged Out No longe r eligible based on patient's age to complete this topic Care Teams Mail Caller Relationship Specialty Start Date End Date Brandon Arzola MD PCP - General Internal Medicine 07/07/24
--- OUTSIDE RECORDS SUMMARY | 2025-08-11 13:04 | XMS_ITS ---
Author Organization [facility] Address [address] [place] [address] Phone Care Team Providers Care Editor Greeting Card Name Role Phone Brandon Arzola MD Primary Care Provider [phone] Active Problems Problem Noted Date Diagnosed Date [...] department thereafter to discuss results. Lung cancer (CMS/HCC V24, CMS/HCC V28) Pulmonary nodule 02/17/2025 Asthma 11/01/2024 HTN (hypertension) 11/01/2024 Hyperlipidemia LDL goal <130 11/01/2024 Migraine headache 11/01/2024 Seasonal allergies 11/01/2024 Type 2 diabetes mellitus wit h hyperglycemia, without long-term current use of insulin ([facility] V24, [facility] V28) 08/16/2024 Smoker 08/18/2019 Obstructive sleep apnea 01/26/2019 Overview (11/01/2024): [facility] Home Polysomnogram: Date 01/23/2019; HEMALATHA 11, Unclassified apneas 3; Obstructive apneas 83; Central apneas 8; Mixed apneas 1; hypopneas 45; average oxygen saturation 94% (lowest 84% without saturations <88% for 5% or more of study) - Obstructive Sleep Apnea - mild; mostly obstructive apneas and hypopneas; without sleep related hypoventilation by 2018 home polysomnogram. Vitamin D deficiency 11/04/2018 Current Oncology Plans No current plan information found. Past Plans No past plan information found. Radiation Treatments * No radiation treatments are documented for this patient in [facility]. Treatments may have been administered in another system. Lifetime Dose Tracking * Chemical Lifetime Dose Automatic Entry Manual Entr y Radiation (DLP) 184.39 mGy-cm 184.39 mGy-cm 0 mGy-cm CTDIvol 4.83 mGy 4.83 mGy 0 mGy
--- NOTE | 2025-08-11 13:44 | A.OFFVIS_ITS ---
Vital Signs 08/11/25 13:48 Height 5 ft 4 in BMI Reason not done Patient refused/unable BP 119/58 L Blood Pressure Location Lt brachial Position Sitting Pulse 69 Pulse Source Pulse Oximeter Pulse Oximetry (%) 98 Oxygen Delivery Method Room Air Intake Visit Reasons: RIGHT LOWER RIB PAIN Intake Note: Pain today 04/01 Equine Breeder Required: Yes Equine Breeder Language: Registered Nursing Professor Services: Equine Breeder Present Equine Breeder Name: Alba Accompanied by: SEAFOOD TECHNOLOGY SPECIALIST Allergies amoxicillin Allergy (Unknown, Verified 08/11/25 14:02) respiratory issues aspirin (From Batsheva Aspirin) Allergy (Unknown, Verified 08/11/25 14:02) Unknown Influenza Virus Vaccines Allergy (Unknown, Verified 08/11/25 14:02) Unknown HPI Comments Details: The patient is a 70-year-old female presenting with right-sided rib pain followi ng a VATS procedure. The pain began several months ago after the procedure for a right middle lobe nodule. The patient describes the pain as constant, throbbing, tingling, sharp, and tight, primarily located in the right lower rib area, with a severity level of 5 out of 10. The pain worsens in the afternoon and is exacerbated by movement, particularly coughing and eating. The patient reports that lying down provides some relief, although she experiences a sensation of being cold. The patient has a history of lung cancer, which is currently in remission following the VATS procedure. She also has a medical history of asthma, migraine headaches, diabetes, obstructive sleep apnea, and dementia. Her diabetes management has been challenging post-surgery, with a recent blood sugar level of 180 mg/dL. She receives daily SEAFOOD TECHNOLOGY SPECIALIST services. - Onset: Post-VATS procedure, since 03/22/25 - Quality: Throbbing, sharp, tight, pulling, tingling - Location: Right lower rib area, flank, and right upper abdomen - Exacerbating factors: Movement, coughing, eating, constipation - Relieving factors: Lying down - Interference: Worse in the afternoon, better in the morning - Affect: Patient feels cold and experiences discomfort due to pain. - Analgesia: Currently taking gabapentin 300 mg three times a day without significant relief. - Adverse Effects: No specific adverse effects from gabapentin reported. - Activities of Daily Living: Pain interferes with movement and daily activities, particularly in the afternoon. - Aberrant Drug Related Behaviors: None reported. [facility] Medical History (Updated 08/11/25 @ 14:10 by SIMONA Hernandez) TUCKER (obstructive sleep apnea) Vitamin D deficiency Seasonal allergic rhinitis Migraine Hyperlipidemia Hypertension Asthma Pulmonary nodule Lung cancer History of lung cancer Surgical History (Updated 08/11/25 @ 14:10 by SIMONA Hernandez) History of tonsillectomy History of lobectomy of lung H/O: hysterectomy H/O colonoscopy Social History Alcohol intake: never Patient Tobacco Use Status: Former Tobacco user Review of Systems Const Details: - Respiratory: Reports right-sided rib pain exacerbated by coughing and eating. - Neurological: Denies any new neurological symptoms, but has a history of migraine headaches. - Endocrine: Reports elevated blood sugar levels post-surgery. All systems reviewed & are unremarkable except as noted in HPI and below Physical Exam Vital Signs: Last Vital Signs Pulse 69 08/11/25 13:48 BP 119/58 L 08/11/25 13:48 Pulse Ox 98 08/11/25 13:48 Oxygen Delivery Method Room Air 08/11/25 13:48 General: Appears afebrile. Alert and oriented. Mood and affect appropriate. Follows and participates in conversation appropriately. Respiratory effort is unlabored. No cough. Able to transition from sit to stand unassisted. Ambulates with bilaterally normal heel strike and toe off. Chest Other: Well healed incision mid back into right flank and right upper abdomen Chest palpation & inspection: normal inspection of the chest, normal palpation of entire chest wall, no crepitus, no localized rib tenderness, tenderness rib right anterior-axillary line involving the 7th rib and involving the 8th rib and No rash General: Yes no CVA tenderness Back/Spine/Pelvis Back: no CVA tenderness Cervical Spine: cervical ROM normal and No Cervical spine tenderness Thoracic/Lumbar Spine: thoracic and lumbar spine normal to inspection, Thoracic/lumbar spine scar(s), paraspinal muscle tenderness on the right in the mid thoracic and in the lower thoracic, thoraco-lumbar spasm on the right in the mid thoracic and in the lower thoracic, No thoracic spinal tenderness and No lumbar spinal tenderness Results Reviewed Results Reviewed: No imaging results are available for review. Assessment & Plan Assessment & Plan (1) Intercostal neuralgia: Code(s): G58.8 - Other specified mononeuropathies Category: Medical (2) Rib pain on right side: Code(s): R07.81 - Pleurodynia Category: Medical (3) History of lobectomy of lung: Comment: Right Code(s): Z90.2 - Acquired absence of lung [part of] Category: Surgical Plan The plan includes scheduling the patient for a diagnostic and therapeutic intercostal nerve block for symptomatic relief. The patient is advised to continue gabapentin and to try a lidocaine patch, pending insurance approval. Monitoring of blood sugar levels is recommended, with a target A1c below 7.5 before proceeding with further interventions. Schedule Right Diagnostic/Therapeutic T7-T8 Intercostal Nerve Block with local and US guidance. Expectations, risks and benefits were reviewed. Patient is aware she will be contacted to schedule this procedure. All questions and concerns have been answered and patient agreed with the treatment plan. Follow up after injections and sooner as needed. Patient was informed and verbally consented to the use of an ambient scribe for clinic note documentation during this visit. Medications: New lidocaine 5% leave on most painful area for up to 12 hrs topically daily; 30 ea 0RF pain 30 days G58.8 - Other specified mononeuropathies, R07.81 - Pleurodynia Coding Level of Care Code New Pt Level 4 (93764) Diagnoses Intercostal neuralgia G58.8 Rib pain on right side R07.81 History of lobectomy of lung Z90.2
[2025-08-11 13:48] VITALS: BP 119/58; PULSE 69; O2SAT 98
== END 2025-08-11 14:32 | disposition home or self-care (01) ==
LOC: HO.PMC 13:01
PROVIDERS: PCP Internal Medicine; Visit Provider Nurse Practitioner Family
DX: G58.8 Other specified mononeuropathies (principal); R07.81 Pleurodynia; Z90.2 Acquired absence of lung [part of]
CPT/HCPCS: 99204

== ENCOUNTER → 2025-08-11 13:01 | Outpatient (BNVA) | payer OTHER, SELFPAY | PROVIDERS: PCP Internal Medicine; Visit Provider Nurse Practitioner Family | DX: R07.81 Pleurodynia (principal); G58.8 Other specified mononeuropathies; Z90.2 Acquired absence of lung [part of] | CPT/HCPCS: 99202 ==

== ENCOUNTER 2025-08-31 11:48 | Outpatient (AMB) | payer OTHER, SELFPAY ==
--- NOTE | 2025-08-31 12:09 | MHC.OFFVIS ---
Intake Visit Reasons: 6M Dementia Steel Layout Worker Required: Yes Steel Layout Worker Name: #[id number] Accompanied by: Spouse Allergies amoxicillin Allergy (Unknown, Verified 08/31/25 12:13) respiratory issues aspirin (From Batsheva Aspirin) Allergy (Unknown, Verified 08/31/25 12:13) Unknown Influenza Virus Vaccines Allergy (Unknown, Verified 08/31/25 12:13) Unknown Medication List - Last Reconciled 08/31/25 by Rachel Manrique CNP cholecalciferol (vitamin D3) 25 mcg PO DAILY donepezil 5 mg PO BEDTIME 90 days escitalopram oxalate 20 mg PO DAILY fenofibrate nanocrystallized 145 mg PO DAILY gabapentin 300 mg PO TID lidocaine 5% leave on most painful area for up to 12 hrs topically daily; 30 days lisinopril 10 mg PO DAILY magnesium citrate 100 mg PO DAILY mirtazapine 7.5 mg PO BEDTIME omeprazole 20 mg PO DAILY propranolol 10 mg PO BID rosuvastatin 10 mg PO BEDTIME trazodone 50 mg PO BEDTIME PRN vitamin I11-wbaobhsgd factor caps PO HPI Comments Details: 70-year-old woman with HTN, anxiety, depression, headaches, insomnia, and dementia. She was doing okay. Memory was more or less the same. Sleep was not so good. She was taking medication around 8am, but often was not able to fall asleep until 4am and would sleep until late morning or early afternoon. Mood was okay. [facility] Medical History (Updated 08/31/25 @ 12:12 by Rachel Manrique CNP) TUCKER (obstructive sleep apnea) Vitamin D deficiency Seasonal allergic rhinitis Migraine Hyperlipidemia Hypertension Asthma Pulmonary nodule Lung cancer History of lung cancer Surgical History (Updated 08/11/25 @ 14:10 by SIMONA Hernandez) History of tonsillectomy History of lobectomy of lung H/O: hysterectomy H/O colonoscopy Social History Alcohol intake: never Patient Tobacco Use Status: Former Tobacco user Review of Systems Const Denies chills, Denies daytime sleepiness, Denies difficulty sleeping, Denies fatigue, Denies fever(s), Denies frequent falls, Denies headache(s), Denies increased appetite, Denies poor appetite, Denies snoring, Denies weakness, Denies weight gain and Denies weight loss Eyes Denies loss of vision ENT Denies vertigo, Denies dizziness and Denies headache(s) Card Denies chest pain at rest, Denies chest pain with activity, Denies syncope, Denies leg edema and Denies palpitations Resp Denies snoring GI Denies constipation, Denies heartburn, Denies diarrhea and Denies nausea Denies urinary frequency, Denies urinary incontinence and Denies urinary urgency Musc Denies abnormal gait, Denies numbness and Denies tingling Skin/Breast Denies dry skin and Denies rash Neuro Denies abnormal gait, Denies vertigo, Denies dizziness, Denies syncope, Denies frequent falls, Denies headache(s), Denies lack of coordination, Denies loss of vision, Reports memory loss, Denies numbness, Denies restless legs, Denies seizure-like activity, Denies tingling, Denies paresthesias, Denies tremor(s) and Denies weakness Psych Denies anxiety, Denies depression, Denies auditory hallucinations, Reports memory loss, Denies visual hallucinations and Denies suicidal ideation Endo Denies fatigue and Denies palpitations Physical Exam Const Other: General Appearance:? normal, in no acute distress. Skin:? no rashes, no significant birthmarks. Heart:? S1, S2 normal, no murmurs. Lungs:? clear anteriorly and posteriorly. Extremities:? no edema. Psych:? alert, cooperative with exam. Neuro Other: Mental Status:?Alert and awake with normal affect. She is unable to tell me the date or year. She is able to tell me that she is here with her . Cranial Nerves:?Pupils are equal, round and reactive to light. External occular muscles are intact. Visual christie are full. Face is symmetrical. Facial sensations are normal. Tongue is midline. Palate elevates symmetrically. Shoulder shrugging is normal. Hearing to bedside conversation is normal. Sensory Exam:?....? Coordination:?No ataxia,?no titubation.? Gait Exam: Within normal limits. Extrapyramidal System:?No tremor, rigidity with normal facial expressions.? Pronator Drift:?Not present.? Involuntary Movements:?No tremors seen.? Speech:?Normal.? Results Reviewed Results Reviewed: MRI brain WO at [facility] in March 2024: Mild atrophy Assessment & Plan Assessment & Plan (1) Alzheimer dementia: Code(s): G30.9 - Alzheimer's disease, unspecified; F02.80 - Dementia in other diseases classified elsewhere, unspecified severity, without behavioral disturbance, psychotic disturbance, mood disturbance, and anxiety Category: Medical Qualifiers: Alzheimer's disease onset: unspecified onset Dementia severity: unspecified severity Dementia behavioral or psychological symptom: unspecified whether behavioral, psychotic, or mood disturbance or anxiety Qualified Code(s): G30.9 - Alzheimer's disease, unspecified; F02.80 - Dementia in other diseases classified elsewhere, unspecified severity, without behavioral disturbance, psychotic disturbance, mood disturbance, and anxiety Plan: Continue donepezil 5mg 1 tablet at bedtime. Stay physically and socially active. (2) Insomnia: Code(s): G47.00 - Insomnia, unspecified Category: Medical Qualifiers: Insomnia type: unspecified Qualified Code(s): G47.00 - Insomnia, unspecified Plan: Increase trazodone 100mg 1 tablet at bedtime as needed for sleep. Medications: New trazodone 100 mg PO BEDTIME PRN 30 tabs 2RF sleep 30 days Coding Level of Care Code Est Pt Level 4 (06145) Diagnoses Alzheimer's dementia, unspecified dementia severity, unspecified timing of dementia onset, unspecified whether behavioral, psychotic, or mood disturbance or anxiety G30.9; F02.80 Alzheimer's disease onset: unspecified onset Dementia severity: unspecified severity Dementia behavioral or psychological symptom: unspecified whether behavioral, psychotic, or mood disturbance or anxiety Insomnia, unspecified type G47.00 Insomnia type: unspecified
== END 2025-08-31 12:27 | disposition home or self-care (01) ==
LOC: HO.HSM 11:49
PROVIDERS: PCP Internal Medicine; Referring Provider Internal Medicine; Visit Provider Registered Nurse
DX: G30.9 Alzheimer's disease, unspecified (principal); F02.80 Dementia in other diseases classified elsewhere, unspecified severity, without behavioral disturbance, psychotic disturbance, mood disturbance, and anxiety; G47.00 Insomnia, unspecified
CPT/HCPCS: 99214

== ENCOUNTER → 2025-08-31 11:48 | Outpatient (BNVA) | payer OTHER, SELFPAY | PROVIDERS: PCP Internal Medicine; Referring Provider Internal Medicine; Visit Provider Registered Nurse | DX: G30.9 Alzheimer's disease, unspecified (principal); F02.80 Dementia in other diseases classified elsewhere, unspecified severity, without behavioral disturbance, psychotic disturbance, mood disturbance, and anxiety; G47.00 Insomnia, unspecified | CPT/HCPCS: 99212 ==